=== PATIENT | female | born 2000 | race Caucasian/White ===

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

== ENCOUNTER 2021-11-06 23:44 | Emergency (ER) | payer MEDICAID ==
[~2021-11-06] VITALS: Ht 162.6 cm; Wt 122.5 kg
[2021-11-06 23:48] VITALS: BP_SYST 130
--- NOTE | 2021-11-06 23:56 | NUR ---
HERE C/O MD ABDOMINAL PAIN RADIATES TO BACK SINCE THIS AFTERNOON, DENIES N/V/D, DENIES DYSURIA. PMh:ASTHMA PT AAX4, NO SOB NOTED, AMBULATED TO RM3 WITH STEADY GAIT, PENDING MD BALES.
[2021-11-07 00:15] LABS: BASOPHILS # (AUTO) 0.1 K/uL (0.0-0.2); BASOPHILS % (AUTO) 1.1 % (0.0-2.0); EOSINOPHILS # (AUTO) 0.1 K/uL (0.0-0.4); EOSINOPHILS % (AUTO) 0.5 % (0.0-4.0); HEMATOCRIT 41.7 % (36-48); HEMOGLOBIN 14.1 g/dL (12.0-16.0); LYMPHOCYTES # (AUTO) 2.9 K/uL (1.0-5.5); MEAN CORPUSCULAR HEMOGLOBIN 30 pg (27-31); MEAN CORPUSCULAR HGB CONC 34 % (32-36); MEAN CORPUSCULAR VOLUME 89 fL (79.0-98.0); MONOCYTES # (AUTO) 0.7 K/uL (0.0-1.0); NEUTROPHILS # (AUTO) 7.5 K/uL (1.8-7.7); NEUTROPHILS % (AUTO) 66.4 % (40.0-70.0); PLATELET COUNT (AUTO) 339 K/uL (130-430); RED BLOOD CELL COUNT(AUTO) 4.67 MIL/uL (4.2-6.2); RED CELL DISTRIBUTION WIDTH 13.7 % (9.0-15.0); WHITE BLOOD COUNT (AUTO) 11.2 K/uL (4.8-10.8)
--- NOTE | 2021-11-07 00:24 | NUR ---
MD BUTLER at bedside examining patient.
[2021-11-07 00:32] LABS: CALCIUM 9.6 mg/dL (8.4-11.0); CREATININE 1.19 mg/dL (0.55-1.30); POTASSIUM 3.7 mmol/L (3.5-5.1)
[2021-11-07 00:37] LABS: TOTAL BILIRUBIN 0.3 mg/dL (0.0-1.0)
[2021-11-07] MEDS ORDERED: KETOROLAC TROMETHAMINE 30 MG VIAL IVP ONE (00:45)
[2021-11-07] MEDS ORDERED: NACL 0.9% 1,000 ML IV ONE (00:45)
--- NOTE | 2021-11-07 00:45 | NUR ---
# 20 gauge angiocath placed to L AC. Use of asceptic technique. Opsite placed over site. Blood return noted. Flushed with 10 cc of normal saline. No evidence of infiltration noted. Patient tolerated well.
--- NOTE | 2021-11-07 00:49 | NUR ---
Medication administered as per MD orders.
[2021-11-07 02:23] LABS: BILIRUBIN,URINE NEGATIVE (NEGATIVE); BLOOD, URINE 3+ (NEGATIVE); CLARITY/URINE SL CLOUDY (CLEAR); COLOR,URINE YELLOW (YELLOW); GLUCOSE,URINE NEGATIVE (NEGATIVE); KETONES,URINE TRACE (NEGATIVE); LEUKOCYTE ESTERASE ,URINE 2+ (NEGATIVE); NITRITE, URINE NEGATIVE (NEGATIVE); PROTEIN URINE 1+ (NEGATIVE); UROBILINOGEN,URINE 0.2 (0.2-1.0)
[2021-11-07 02:39] LABS: BACTERIA,URINE MODERATE /HPF (None Seen)
[2021-11-07] MEDS ORDERED: cefTRIAXone 1 GM in D5W 50 ML IV ONE (02:45)
[2021-11-07] MEDS ORDERED: TRAM50TA PO (02:53)
[2021-11-07] MEDS ORDERED: CEFU250T85 PO (02:53)
[2021-11-07] MEDS ORDERED: cefTRIAXone 1 GM IVPB PREMIX 50 ML IV ONE (02:56)
[2021-11-07] MEDS ORDERED: MOM PO (03:01)
[2021-11-07] MEDS ORDERED: PHE25 PO (03:01)
[2021-11-07 03:15] VITALS: BP_SYST 129
[2021-11-07] MEDS ORDERED: PROCHLORPERAZINE EDISYLATE 10 MG/2 ML VIAL IVP ONE (03:15)
--- NOTE | 2021-11-07 03:17 | NUR ---
Patient given written and verbal discharge instructions and verbalizes understanding. ER MD Dumont discussed with patient the results and treatment provided. Patient in stable condition. ID arm band removed. IV catheter removed intact and dressing applied, no active bleeding. Rx of Ceftin and Tramadol sent to pharmacy of choice. Patient educated on pain management and to follow up with PMD. Pain Scale 1/10. Opportunity for questions provided and answered. Medication side effect fact sheet provided.
== END 2021-11-07 03:15 | disposition home or self-care (01) ==
LOC: SED 23:44
DX: K59.00 Constipation, unspecified (principal); N39.0 Urinary tract infection, site not specified; R10.11 Right upper quadrant pain; F17.200 Nicotine dependence, unspecified, uncomplicated; Z79.899 Other long term (current) drug therapy
CPT/HCPCS: 99284; 80053; 81000; 83690; 85025; 85379; 87086; 36415; 81025; 96365; 71045; 96375; 96361; 74021; J0696; J1885; J0780; J7030

== ENCOUNTER 2021-12-28 18:56 | Emergency (ER) | payer MEDICAID ==
[~2021-12-28] VITALS: Ht 162.6 cm; Wt 113.4 kg
[~2021-12-28 18:56] MED LIST: CEFU250T85 PO; MOM PO; PHE25 PO; TRAM50TA PO
[2021-12-28 19:02] VITALS: BP_SYST 133
[2021-12-28] MEDS ORDERED: ALBUTEROL SULFATE 0.083% 2.5 MG/3 ML VIAL.NEB INH ONE (20:15)
[2021-12-28] MEDS ORDERED: IPRATROPIUM BROM 0.5 MG/2.5 ML VIAL.NEB (ATROVENT) INH ONE (20:15)
[2021-12-28] MEDS ORDERED: NITR-85 PO (21:11)
[2021-12-28] MEDS ORDERED: ALBMDI INH (21:13)
[2021-12-28 21:28] VITALS: BP_SYST 140
[2021-12-28] MEDS ORDERED: NITROFURANTOIN MONOHYD/M-CRYST 100 MG CAPSULE (MacroBID) PO ONE (21:30)
[2021-12-29] MEDS ORDERED: nitrofurantoin macrocrystaL 50 MG CAPSULE PO SCH (21:00)
== END 2021-12-28 21:28 | disposition home or self-care (01) ==
LOC: SED 18:56
DX: T18.9XXA Foreign body of alimentary tract, part unspecified, initial encounter (principal); N39.0 Urinary tract infection, site not specified; J45.909 Unspecified asthma, uncomplicated; Z79.899 Other long term (current) drug therapy; W45.8XXA Other foreign body or object entering through skin, initial encounter; Y93.89 Activity, other specified; Y92.89 Other specified places as the place of occurrence of the external cause; Y99.8 Other external cause status
CPT/HCPCS: 71045; 74018; 94640; 94760; 99284; 81025; J7613